=== PATIENT | female | born 1985 | race Caucasian/White ===

== ENCOUNTER 2020-06-29 11:04 | Emergency (ER) | payer OTHER, SELFPAY ==
[2020-06-29] VITALS (10 sets, daily range): BP systolic 111–141; BP diastolic 68–78; PULSE 78–95; RESP 18; TEMP 36.7; O2SAT 96–100
[2020-06-29 11:45] LABS: Basophils Percent Auto 0.2 % (0.2-1.2); Hematocrit 40.4 % (37.0-47.0); Hemoglobin 13.9 g/dL (12.0-15.0); Immature Granulocyte Absolute 0.02 K/mm3 (0.00-0.031); Immature Granulocyte Percent A 0.2 % (0-0.5); Lymphocytes Percent Auto 7.7 % (18.3-44.2); Mean Corpuscular HGB Conc 34.4 g/dl (32-36); Mean Corpuscular Hemoglobin 30.2 pg (26-34); Mean Corpuscular Volume 87.6 fl (80-100); Mean Platelet Volume 9.8 fl (7.4-10.4); Monocytes Absolute Auto 0.4 K/mm3 (0.1-0.6); Monocytes Percent Auto 3.7 % (2.6-8.5); Neutrophils Absolute Auto 9.1 K/mm3 (1.3-6.7); Neutrophils Percent Auto 88.2 % (45.5-73.1); Platelet Count Result 244 k/mm3 (150-375); Red Blood Count 4.61 M/mm3 (4.2-5.4); Red Cell Distribution Width 12.7 % (11.5-14.5); White Blood Count 10.3 K/mm3 (4.5-10.0)
[2020-06-29 12:05] LABS: Alanine Aminotransferase 25 U/L (4-35); Albumin Level 3.7 g/dL (3.5-5.1); Alkaline Phosphatase 59 U/L (38-126); Anion Gap 5 mmol/L (8-16); Aspartate Amino Transferase 32 U/L (14-36); Bilirubin,Total 0.3 mg/dL (0.2-1.3); Blood Urea Nitrogen 8 mg/dL (7-17); Calcium 8.3 mg/dL (8.4-10.2); Carbon Dioxide 24 mmol/L (22-30); Chloride 107 mmol/L (98-107); Estimated CRCL calculation 120 ml/min; Estimated Glomerular Filt Rate > 60; Glucose 125 mg/dL (65-105); Lipase 20 U/L (23-300); Potassium 3.4 mmol/L (3.4-5.0); Sodium 136 mmol/L (137-145)
[2020-06-29 14:03] LABS: Add Urine Microscopic? YES; Appearance Urine Clear (Clear); Bilirubin Urine Negative (Negative); Blood Urine Negative (Negative); Color Urine Amber (Yellow); Glucose Urine UA Negative (Negative); Ketones Urine 1+ mg/dL (Negative); Leukocyte Esterase Ur Negative LEU/UL (Negative); Nitrate Urine Negative (Negative); Protein Urine 1+ mg/dL (Negative); Urobilinogen Urine Negative mg/dL (<2.0)
[2020-06-29 14:04] LABS: Specific Grav Ur 1.038 (1.001-1.035)
--- NOTE | 2020-06-29 14:11 | ED.NAVMDI ---
HPI - Nausea/Vomiting/Diarrhea General Chief complaint: Nausea/Vomiting/Diarrhea Stated complaint: Vomiting, Diarrhea Time Seen by Provider: 06/29/20 12:56 History of Present Illness HPI Narrative: Patient is a 34-year-old female who presents ER with nausea and vomiting as well as diarrhea. Ongoing for 24 hours. Patient was seen in ER in [place] where she had a CT scan and lab work performed. She received IV fluids and felt better and was discharged home. Nausea vomiting came back so she return to the ER. Denies fevers or chills or sweats. No additional sick contacts. She had Zofran at home but was not helping. No blood in stool or emesis. Patient had recently finished antibiotics about 2 weeks ago. Related Data Allergies Allergy/AdvReac Type Severity Reaction Status Date / Time Cephalosporins Allergy Mild Unverified 09/18/08 08:20 Review of Systems Review of Systems: All systems reviewed & are unremarkable except as noted in HPI and below Constitutional: Constitutional: Denies chills, Denies fever(s) and Denies weakness ENT: Denies nasal congestion and Denies sore throat Respiratory: Respiratory: Denies cough and Denies dyspnea Gastrointestinal: Gastrointestinal: Denies abdominal pain, Reports diarrhea, Reports nausea and Reports vomiting Genitourinary: Genitourinary: Denies nocturia, Denies dysuria and Denies flank pain PMFSH Past Medical History Medical History (Updated 06/29/20 @ 16:01 by Rio Rabago MD) Healthy female adult Surgical History Surgical History (Updated 06/29/20 @ 14:13 by Rio Rabago MD) History of tonsillectomy Exam Narrative: Exam Narrative: GENERAL: Well-appearing, well-nourished, and in no acute distress. HEAD: Normocephalic, atraumatic. CHEST: Clear to auscultation. No respiratory distress. HEART: Regular rate and rhythm. Normal peripheral pulses. ABDOMEN: Soft, nontender, nondistended. EXTREMITIES: Normal range of motion. No edema. SKIN: Warm, dry, no rash. NEURO: Alert and oriented x3. PSYCH: Normal mood and affect. Course Reevaluation(s) Reevaluation #1: Just got a line. Will give phenergan and IVF Date: 06/29/20 Time: 14:24 Reevaluation #2: Patient resting comfortably. Hydrated, nausea improved with Phenergan. Informed of results. Patient had no reproducible abdominal tenderness. Record request from [place] do not result in us receiving any records. Discharge home. Date: 06/29/20 Time: 16:01 Vital Signs Vital signs: Vital Signs Temperature 98.1 F 06/29/20 11:32 Pulse Rate 95 06/29/20 11:32 Respiratory Rate 18 06/29/20 11:32 Blood Pressure 128/73 06/29/20 11:32 Pulse Oximetry 97 06/29/20 11:32 Temperature 98.0 F 06/29/20 13:07 Pulse Rate 78 06/29/20 13:07 Respiratory Rate 18 06/29/20 13:07 Blood Pressure 111/71 06/29/20 14:46 Pulse Oximetry 100 06/29/20 15:06 MDM - Nausea/Vomiting/Diarrhea Lab Data Result diagrams: 06/29/20 11:39 06/29/20 11:39 Labs: Lab Results 06/29/20 06/29/20 06/29/20 Range/Units 11:39 11:39 13:50 WBC 10.3 H (4.5-10.0) K/mm3 RBC 4.61 (4.2-5.4) M/mm3 Hgb 13.9 (12.0-15.0) g/dL Hct 40.4 (37.0-47.0) % MCV 87.6 (80-100) fl MCH 30.2 (26-34) pg MCHC 34.4 (32-36) g/dl RDW 12.7 (11.5-14.5) % Plt Count 244 (150-375) k/mm3 MPV 9.8 (7.4-10.4) fl Immature Gran % (Auto) 0.2 (0-0.5) % Neut % (Auto) 88.2 H (45.5-73.1) % Lymph % (Auto) 7.7 L (18.3-44.2) % [place] % (Auto) 3.7 (2.6-8.5) % Eos % (Auto) 0.0 (0-4.4) % Baso % (Auto) 0.2 (0.2-1.2) % Lymph # (Auto) 0.80 L (0.9-3.2) K/mm3 [place] # (Auto) 0.4 (0.1-0.6) K/mm3 Eos # (Auto) 0.0 (0-0.3) K/mm3 Baso # (Auto) 0.0 (0.0-0.1) K/mm3 Abs Immat Gran (auto) 0.02 (0.00-0.031) K/mm3 Absolute Neuts (auto) 9.1 H (1.3-6.7) K/mm3 Absolute Nucleated RBC 0.0 (0.0-0.012) K/mm3 Nucleated RBC % 0.0 (0.0-0.2)
[2020-06-29 14:18] LABS: Bacteria Urine Trace /hpf; WBC Urine 0-3 /hpf (0-3)
[2020-06-29 14:19] LABS: Squamous Epithelial Cell Urine Few /hpf (Few)
[2020-06-29] MEDS: PROMETHAZINE HCL 25 MG/ML AMPUL 12.5 MG IV PUSH (14:27)
[2020-06-29] MEDS: SODIUM CHLORIDE 0.9% IV 1,000 ML 999 ML IV CONT (14:28)
== END 2020-06-29 16:37 | disposition home or self-care (01) ==
PROVIDERS: Emergency Medicine; Emergency Provider Emergency Medicine; PCP Physician Assistant Medical
DX: K52.9 Noninfective gastroenteritis and colitis, unspecified (principal)
CPT/HCPCS: 36415; 51701; 80053; 81001; 83690; 85025; 96361; 96374; 99284; J2550; J7030